=== PATIENT | male | born 1990 | race Caucasian/White ===

== ENCOUNTER → 2016-09-24 | Outpatient (CLI) | payer OTHER ==
[~2016-09-24] VITALS: Ht 180.3 cm; Wt 113.4 kg
[2016-09-24 14:44] LABS: BUN/CREATININE RATIO 20 (0-10)
== END ==
LOC: OPSV 12:55
PROVIDERS: Podiatrist Foot & Ankle Surgery
DX: Z48.00 Encounter for change or removal of nonsurgical wound dressing (principal); S91.302D Unspecified open wound, left foot, subsequent encounter
CPT/HCPCS: 36592; 80048; 96365; 96366; J3370; J7070

== ENCOUNTER → 2022-03-23 | Outpatient (CLI) | payer OTHER ==
[2022-03-23 13:47] LABS: HEMOGLOBIN 18.6 gm/dl (14.0-17.5); RED BLOOD COUNT 5.94 M/UL (4.20-5.50); WHITE BLOOD COUNT 17.4 K/UL (4.5-11.0)
== END ==
LOC: LAB 13:18
PROVIDERS: Nurse Practitioner Family
DX: M79.672 Pain in left foot (principal); L89.600 Pressure ulcer of unspecified heel, unstageable; M25.579 Pain in unspecified ankle and joints of unspecified foot
CPT/HCPCS: 36415; 85025; 87040